=== PATIENT | female | born 1980 | race Caucasian/White ===

== ENCOUNTER 2023-02-23 13:09 | Inpatient (IN) | payer MEDICAID ==
[~2023-02-23] VITALS: Ht 157.5 cm; Wt 152.0 kg
[2023-02-23 13:28] VITALS: BP 143/69
[2023-02-23] MEDS ORDERED: VITAMIN D3125 MCG PO (13:39)
[2023-02-23] MEDS ORDERED: TYLENOL325 M1 PO (13:39)
[2023-02-23] MEDS ORDERED: CRESTOR5 M1 PO (13:40)
[2023-02-23] MEDS ORDERED: LEXAPRO10 MG PO (13:40)
[2023-02-23] MEDS ORDERED: TRULICITY3 MG/0.5 M SQ (13:41)
[2023-02-23] MEDS ORDERED: WARFARIN SODIUM1 MG PO (13:41)
[2023-02-23 14:17] LABS: BASO # 0.1 10*3/uL (0.0-0.1); BASO % 0.5 % (0.0-1.0); EOS % 0.4 % (1.0-4.0); HEMATOCRIT 37.9 % (37.0-47.0); LYMPH # 1.4 10*3/uL (1.3-4.4); LYMPH % 13.2 % (27.0-41.0); MEAN CELL VOLUME 93.6 fl (81.0-99.0); MEAN CORPUSCULAR HGB 29.1 pg (27.0-31.0); MEAN CORPUSCULAR HGB CONC 31.1 g/dl (33.0-37.0); MEAN PLATELET VOLUME 8.9 fl (9.6-12.3); MONO # 0.5 10*3/uL (0.1-1.0); MONO % 4.4 % (3.0-9.0); NEUT # 8.3 10*3/uL (2.3-7.9); NEUT % 81.1 % (47.0-73.0); PLATELET COUNT AUTOMATED 357 10*3/uL (130-400); RED BLOOD COUNT 4.05 10*6/uL (4.10-5.10); RED CELL DISTRI WIDTH 15.4 % (0-14.5); WHITE BLOOD COUNT 10.2 10*3/uL (4.8-10.8)
[2023-02-23 14:30] LABS: ACT PARTIAL THROMBO TIME 33.6 SECONDS (20.0-32.1)
[2023-02-23 15:05] LABS: ALKALINE PHOSPHATASE 228 U/L (46-116); BUN 9 mg/dl (9-23); CHLORIDE 98 mmol/L (98-107); POTASSIUM 3.3 mmol/L (3.4-5.1); SGPT/ALT 17 U/L (5-49); TOTAL PROTEIN 7.2 gm/dL (6.0-8.0)
[2023-02-23 21:40] VITALS: BP 103/30
[2023-02-23 23:30] VITALS: BP 118/58
[2023-02-24 06:14] LABS: BASO % 0.4 % (0.0-1.0); EOS # 0.1 10*3/uL (0.0-0.4); HEMATOCRIT 34.9 % (37.0-47.0); LYMPH # 1.6 10*3/uL (1.3-4.4); LYMPH % 19.1 % (27.0-41.0); MEAN CELL VOLUME 94.8 fl (81.0-99.0); MEAN CORPUSCULAR HGB 28.8 pg (27.0-31.0); MEAN CORPUSCULAR HGB CONC 30.4 g/dl (33.0-37.0); MEAN PLATELET VOLUME 8.9 fl (9.6-12.3); MONO # 0.5 10*3/uL (0.1-1.0); MONO % 5.6 % (3.0-9.0); NEUT % 73.4 % (47.0-73.0); PLATELET COUNT AUTOMATED 344 10*3/uL (130-400); RED BLOOD COUNT 3.68 10*6/uL (4.10-5.10); RED CELL DISTRI WIDTH 15.7 % (0-14.5); WHITE BLOOD COUNT 8.2 10*3/uL (4.8-10.8)
[2023-02-24 07:09] LABS: VITAMIN D, 25-HYDROXY 22.6 ng/mL (30-100)
[2023-02-24 07:32] LABS: BUN 8 mg/dl (9-23); CHLORIDE 102 mmol/L (98-107); CHOLESTEROL 129 mg/dL (<200); FREE T4 1.21 ng/dl (0.89-1.76); LDL CHOLESTEROL 40 mg/dL (9-159); POTASSIUM 3.6 mmol/L (3.4-5.1); TRIGLYCERIDES 186 mg/dl (<150)
[2023-02-24 08:00] VITALS: BP 114/57
[2023-02-24 12:00] VITALS: BP 121/57
[2023-02-24 16:00] VITALS: BP 118/64
[2023-02-24 20:00] VITALS: BP 130/56
[2023-02-25] VITALS: BP 134/60
[2023-02-25 06:02] LABS: BASO % 0.5 % (0.0-1.0); EOS # 0.2 10*3/uL (0.0-0.4); EOS % 3.3 % (1.0-4.0); HEMATOCRIT 33.6 % (37.0-47.0); LYMPH # 1.4 10*3/uL (1.3-4.4); LYMPH % 23.9 % (27.0-41.0); MEAN CELL VOLUME 95.5 fl (81.0-99.0); MEAN CORPUSCULAR HGB CONC 30.4 g/dl (33.0-37.0); MEAN PLATELET VOLUME 9.2 fl (9.6-12.3); MONO # 0.4 10*3/uL (0.1-1.0); MONO % 6.5 % (3.0-9.0); NEUT # 3.9 10*3/uL (2.3-7.9); NEUT % 65.3 % (47.0-73.0); PLATELET COUNT AUTOMATED 340 10*3/uL (130-400); RED BLOOD COUNT 3.52 10*6/uL (4.10-5.10); RED CELL DISTRI WIDTH 15.7 % (0-14.5)
[2023-02-25 06:13] LABS: BUN 5 mg/dl (9-23); CHLORIDE 103 mmol/L (98-107); POTASSIUM 3.6 mmol/L (3.4-5.1)
[2023-02-25 08:00] VITALS: BP 120/78
[2023-02-25 12:00] VITALS: BP 125/63
[2023-02-25 16:00] VITALS: BP 138/70
[2023-02-25 20:00] VITALS: BP 136/69
[2023-02-26] VITALS: BP 122/56
[2023-02-26 06:17] LABS: BASO % 0.4 % (0.0-1.0); EOS # 0.2 10*3/uL (0.0-0.4); EOS % 2.3 % (1.0-4.0); HEMATOCRIT 31.8 % (37.0-47.0); LYMPH # 1.4 10*3/uL (1.3-4.4); LYMPH % 16.6 % (27.0-41.0); MEAN CELL VOLUME 93.3 fl (81.0-99.0); MEAN CORPUSCULAR HGB CONC 31.1 g/dl (33.0-37.0); MEAN PLATELET VOLUME 9.1 fl (9.6-12.3); MONO # 0.4 10*3/uL (0.1-1.0); MONO % 5.1 % (3.0-9.0); NEUT # 6.3 10*3/uL (2.3-7.9); NEUT % 75.2 % (47.0-73.0); PLATELET COUNT AUTOMATED 318 10*3/uL (130-400); RED BLOOD COUNT 3.41 10*6/uL (4.10-5.10); RED CELL DISTRI WIDTH 15.7 % (0-14.5); WHITE BLOOD COUNT 8.3 10*3/uL (4.8-10.8)
[2023-02-26 06:45] LABS: BUN 6 mg/dl (9-23); CHLORIDE 104 mmol/L (98-107); POTASSIUM 3.8 mmol/L (3.4-5.1)
[2023-02-26 08:00] VITALS: BP 146/74
[2023-02-26 12:00] VITALS: BP 160/80
[2023-02-26] MEDS ORDERED: XARE20MG PO (12:57)
[2023-02-26] MEDS ORDERED: LEVOFLOXACIN750 M2 PO (12:57)
[2023-02-26] MEDS ORDERED: VIBRA-TAB100 MG PO (12:57)
== END 2023-02-26 15:15 | disposition home or self-care (01) | DRG 571 ==
LOC: ED 13:09 → EDHOLD 15:55 → 4E 15:55
PROVIDERS: Physician Assistant Medical; Student in an Organized Health Care Education/Training Program; ADMIT Family Medicine; ATTEND Family Medicine
PROC: 0JBQ0ZZ Excision of Right Foot Subcutaneous Tissue and Fascia, Open Approach (ICD-10-PCS; principal; 2023-02-25)
PROC: 0JBR0ZZ Excision of Left Foot Subcutaneous Tissue and Fascia, Open Approach (ICD-10-PCS; 2023-02-25)
DX: L03.115 Cellulitis of right lower limb (principal); E44.0 Moderate protein-calorie malnutrition; E87.20 Acidosis, unspecified; L97.929 Non-pressure chronic ulcer of unspecified part of left lower leg with unspecified severity; L97.919 Non-pressure chronic ulcer of unspecified part of right lower leg with unspecified severity; Z68.44 Body mass index [BMI] 60.0-69.9, adult; E11.65 Type 2 diabetes mellitus with hyperglycemia; E11.622 Type 2 diabetes mellitus with other skin ulcer; D64.9 Anemia, unspecified; B95.4 Other streptococcus as the cause of diseases classified elsewhere; L03.116 Cellulitis of left lower limb; Z86.718 Personal history of other venous thrombosis and embolism; Z51.81 Encounter for therapeutic drug level monitoring; Z79.01 Long term (current) use of anticoagulants; Z88.8 Allergy status to other drugs, medicaments and biological substances; Z79.899 Other long term (current) drug therapy; Z98.891 History of uterine scar from previous surgery; Z79.1 Long term (current) use of non-steroidal anti-inflammatories (NSAID)